=== PATIENT | female | born 1980 | race Two or more races ===

== ENCOUNTER → 2021-02-05 | Day surgery (SDC) | payer OTHER ==
[~2021-02-05] MED LIST: DAILY VALUE1 EACH PO
== END | disposition home or self-care (01) ==
LOC: ADM 02-02 11:00 → CIR.AMB 05:45
PROVIDERS: ATTEND Plastic Surgery
DX: E65 Localized adiposity (principal); N62 Hypertrophy of breast; L30.4 Erythema intertrigo; Z98.84 Bariatric surgery status; M62.08 Separation of muscle (nontraumatic), other site; K65.4 Sclerosing mesenteritis; R63.4 Abnormal weight loss; E88.1 Lipodystrophy, not elsewhere classified; M79.3 Panniculitis, unspecified; K43.9 Ventral hernia without obstruction or gangrene

== ENCOUNTER → 2022-08-26 06:27 | Outpatient (CLI) | payer OTHER | END | disposition home or self-care (01) | LOC: LAB 06:27 | DX: N93.9 Abnormal uterine and vaginal bleeding, unspecified (principal) ==

== ENCOUNTER 2022-08-26 07:16 | Outpatient (CLI) | payer OTHER | END 2022-08-26 07:23 | disposition home or self-care (01) | LOC: SONOGRAMA 07:16 | DX: N93.8 Other specified abnormal uterine and vaginal bleeding (principal) ==

== ENCOUNTER 2022-09-06 07:09 | Outpatient (CLI) | payer OTHER | END 2022-09-06 07:16 | disposition home or self-care (01) | LOC: SONOGRAMA 07:09 | DX: N63.42 Unspecified lump in left breast, subareolar (principal) ==